=== PATIENT | female | born 1980 | race Caucasian/White ===

== ENCOUNTER 2017-01-08 19:46 | Inpatient (IN) | payer OTHER ==
[~2017-01-08] VITALS: Ht 170.2 cm; Wt 89.1 kg
[~2017-01-08 19:46] MED LIST: FLOINH4 INH; GABAPENTIN PO; KENC TOP; MOT600 PO; PHE30 PO; SUMATRIPTAN PO; VIS50 PO; XOPENEX INHALER INH; ZIPRASIDONE PO
[2017-01-08 20:50] LABS: microscopic required? NO
[2017-01-08 21:18] LABS: BASOPHIL % 0.5 % (0-2); PLATELET COUNT 234 x10^3mcL (130-400)
[2017-01-08 21:23] LABS: UA SPECIFIC GRAVITY 1.015 (1.005-1.035); urine erythrocyte NEGATIVE (NEGATIVE)
[2017-01-08 21:23] LABS: RED CELL DISTRIBUTION WIDTH 15.1 % (11.5-14.5)
[2017-01-08 21:25] LABS: CALCIUM 8.8 mg/dL (8.5-10.1); CARBON DIOXIDE 28.2 mmol/L (21-32); CHLORIDE SERUM 106 mmol/L (98-107); CREATININE SERUM 0.8 mg/dL (0.6-1.0); GFR1 > 60 mL/min; GLUCOSE SERUM 84 mg/dL (74-106); POTASSIUM SERUM 4.1 mmol/L (3.5-5.1); SODIUM SERUM 140 mmol/L (136-145)
[2017-01-08 21:30] LABS: AMPHETAMINE QUAL UR NONE DETECTED (NEG <=1000)
[2017-01-08 21:38] LABS: ALBUMIN 3.6 g/dL (3.4-5.0); ALKALINE PHOSPHATASE 82 U/L (46-116); ALT/SGPT 23 U/L (14-59); AST/SGOT 16 U/L (15-37); BILIRUBIN TOTAL 0.17 mg/dL (0.20-1.00); FREE T4 0.84 ng/dL (0.76-1.46)
[2017-01-08] MEDS ORDERED: BUSPIRONE HCL5 MG PO (21:58)
[2017-01-08] MEDS ORDERED: IMITREX50 MG PO (21:59)
[2017-01-08] MEDS ORDERED: NEU300 PO (21:59)
[2017-01-08] MEDS ORDERED: DULERA1 AR2 (21:59)
[2017-01-08] MEDS ORDERED: HYDROCORTISONE11 (21:59)
[2017-01-08] MEDS ORDERED: OLANZAPINE5 M2 PO (22:00)
[2017-01-08] MEDS ORDERED: XOPENEX1.25 MG/3 (22:00)
[2017-01-08] MEDS ORDERED: KEPPRA500 MG PO (22:00)
[2017-01-08] MEDS ORDERED: STRATTERA25 MG PO (22:01)
[2017-01-08] MEDS ORDERED: TRILEPTAL300 MG PO (22:01)
[2017-01-08] MEDS ORDERED: BELLADONNA ALK (22:01)
[2017-01-08] MEDS ORDERED: VIS25 PO (22:01)
[2017-01-09] VITALS (10 sets, daily range): BP systolic 87–120; BP diastolic 50–89
[2017-01-09 06:24] LABS: BASOPHIL % 0.6 % (0-2); PLATELET COUNT 211 x10^3mcL (130-400)
[2017-01-09 06:32] LABS: RED CELL DISTRIBUTION WIDTH 15.1 % (11.5-14.5)
[2017-01-09 08:59] LABS: ERYTHROCYTE SED RATE 16 mm/hr (0-20)
[2017-01-10 07:23] LABS: RAPID PLASMA REAGIN Non Reactive (Non Reactive)
[2017-01-10 09:04] LABS: RHEUMATOID ARTHRITIS FACTOR <10.0 IU/mL (0.0-13.9)
== END 2017-01-09 20:26 | disposition home or self-care (01) | DRG 100 ==
LOC: ED 19:46 → DU 22:37
PROVIDERS: Emergency Medicine; ADMIT Internal Medicine
DX: G40.909 Epilepsy, unspecified, not intractable, without status epilepticus (principal); G93.41 Metabolic encephalopathy; J44.1 Chronic obstructive pulmonary disease with (acute) exacerbation; Z88.6 Allergy status to analgesic agent
CPT/HCPCS: 84439; 86431; A4628; G0480; J1165; J2060; J3490; J7030; J7620; Q0177

== ENCOUNTER 2018-02-11 17:08 | Inpatient (IN) | payer OTHER ==
[~2018-02-11] VITALS: Ht 170.2 cm; Wt 94.3 kg
[~2018-02-11 17:08] MED LIST changes: +BELLADONNA ALK; +BUSPIRONE HCL5 MG PO; +DULERA1 AR2; +HYDROCORTISONE11; +IMITREX50 MG PO; +KEPPRA500 MG PO; +NEU300 PO; +OLANZAPINE5 M2 PO; +STRATTERA25 MG PO; +TRILEPTAL300 MG PO; +VIS25 PO; +XOPENEX1.25 MG/3
[2018-02-11 17:49] LABS: microscopic required? NO
[2018-02-11 17:49] LABS: BASOPHIL % 0.5 % (0-2); PLATELET COUNT 222 x10^3mcL (130-400); RED CELL DISTRIBUTION WIDTH 13.9 % (11.5-14.5)
[2018-02-11 17:55] LABS: CALCIUM 8.6 mg/dL (8.5-10.1); CARBON DIOXIDE 28.3 mmol/L (21-32); CHLORIDE SERUM 107 mmol/L (98-107); GFR1 > 60 mL/min; GLUCOSE SERUM 76 mg/dL (74-106); POTASSIUM SERUM 4.1 mmol/L (3.5-5.1); SODIUM SERUM 141 mmol/L (136-145)
[2018-02-11 18:00] LABS: urine erythrocyte NEGATIVE (NEGATIVE)
[2018-02-11 18:05] LABS: ALBUMIN 3.5 g/dL (3.4-5.0); ALKALINE PHOSPHATASE 85 U/L (46-116); ALT/SGPT 17 U/L (14-59); AST/SGOT 9 U/L (15-37); BILIRUBIN TOTAL 0.17 mg/dL (0.20-1.00); MAGNESIUM 2.1 mg/dL (1.8-2.4); TOTAL PROTEIN, SERUM 6.9 g/dL (6.4-8.2)
[2018-02-11 18:09] LABS: AMPHETAMINE QUAL UR NONE DETECTED (See below)
[2018-02-11] MEDS ORDERED: NEU300 PO (18:17)
[2018-02-11] MEDS ORDERED: XOPENEX PE0.31 MG/3 (18:18)
[2018-02-11] MEDS ORDERED: PHENOBARBITAL32.4 MG PO (18:18)
[2018-02-11] MEDS ORDERED: KEPPRA1000 M1 PO (18:18)
[2018-02-11] MEDS ORDERED: IMITREX50 MG PO (18:19)
[2018-02-11 20:39] VITALS: BP 113/65
[2018-02-11 20:42] VITALS: Ht 170.2 cm; Wt 94.3 kg
[2018-02-11 21:15] VITALS: BP 113/65
[2018-02-12 05:32] VITALS: BP 102/66
[2018-02-12 06:29] LABS: BASOPHIL % 0.5 % (0-2); PLATELET COUNT 203 x10^3mcL (130-400); RED CELL DISTRIBUTION WIDTH 14.1 % (11.5-14.5)
[2018-02-12 07:00] LABS: T4(THYROXINE) 8.2 ug/dL (4.7-13.3)
[2018-02-12 08:36] LABS: ERYTHROCYTE SED RATE 16 mm/hr (0-20)
[2018-02-12 10:17] VITALS: BP 122/77
[2018-02-12 12:16] VITALS: BP 122/77
[2018-02-12 13:39] VITALS: BP 112/70
[2018-02-13 07:00] LABS: RAPID PLASMA REAGIN Non Reactive (Non Reactive)
[2018-02-13 09:05] LABS: RHEUMATOID ARTHRITIS FACTOR <10.0 IU/mL (0.0-13.9)
== END 2018-02-12 17:18 | disposition other institution (70) | DRG 101 ==
LOC: ED 17:08 → DU 19:30
PROVIDERS: Emergency Medicine; Internal Medicine
DX: G40.909 Epilepsy, unspecified, not intractable, without status epilepticus (principal); J45.901 Unspecified asthma with (acute) exacerbation; G43.909 Migraine, unspecified, not intractable, without status migrainosus; Z87.820 Personal history of traumatic brain injury; Z91.14 Patient's other noncompliance with medication regimen; Z88.6 Allergy status to analgesic agent; D64.9 Anemia, unspecified; R06.03 Acute respiratory distress
CPT/HCPCS: 82962; 86431; G0480; J1953; J2560; J3490; J7620; J7626; Q0092